=== PATIENT | male | born 1970 | race Caucasian/White ===

== ENCOUNTER 2021-06-01 16:00 | Emergency (ER) | payer BC ==
[~2021-06-01] VITALS: Ht 175.3 cm; Wt 135.5 kg
[2021-06-01 16:13] LABS: COLLECTION METHOD CLEAN CATCH
[2021-06-01 16:16] VITALS: BP 176/93; PULSE 77; TEMP 97.7
[2021-06-01 16:22] LABS: MUCOUS Present /lpf; PH 6 (5-8); SQUAMOUS EPITHELIAL None Seen /hpf; URINE APPEARANCE Clear; URINE BACTERIA Rare /hpf; URINE BILIRUBIN Negative (NEGATIVE); URINE BLOOD 1+ (NEGATIVE); URINE COLOR Yellow; URINE GLUCOSE Negative (NEGATIVE); URINE KETONE Negative (NEGATIVE); URINE LEUKOCYTE ESTERASE Negative (NEGATIVE); URINE NITRATE Negative (NEGATIVE); URINE PROTEIN(semi-quant) 1+ (NEGATIVE)
== END 2021-06-01 17:47 | disposition left against medical advice (07) ==
LOC: COL.ER 16:00
PROVIDERS: Emergency Medicine
DX: R10.9 Unspecified abdominal pain (principal); R39.15 Urgency of urination